=== PATIENT | male | born 1965 | race Caucasian/White ===

== ENCOUNTER 2017-08-11 15:20 | Emergency (ER) | payer OTHER ==
[~2017-08-11] VITALS: Ht 182.9 cm; Wt 74.8 kg
[~2017-08-11 15:20] MED LIST: MOBIC15 MG PO; NORCO 5-325 TA1 EACH PO
[2017-08-11 15:22] VITALS: BP 143/95
[2017-08-11] MEDS ORDERED: MIRALAX17 GM PO (15:50)
[2017-08-11 16:49] LABS: URINE BILIRUBIN NEGATIVE (Negative); URINE BLOOD 2+ (Negative); URINE COLOR YELLOW; URINE GLUCOSE-RANDOM* NEGATIVE (Negative); URINE KETONES NEGATIVE (Negative); URINE NITRITE NEGATIVE (Negative); URINE PROTEIN (DIPSTICK) NEGATIVE (Negative); URINE SPECIFIC GRAVITY >= 1.030 (1.003-1.035); URINE UROBILINOGEN 0.2 E.U./dl (0.2-1.0)
[2017-08-11 17:04] LABS: SQUAMOUS None Seen /LPF (0-3); URINE WBC None Seen /HPF (0-5)
[2017-08-11 17:05] LABS: BACTERIA 1-9 Few /HPF (None Seen); CASTS None Seen /LPF (None Seen); CRYSTALS None Seen /LPF (None Seen); URINE RBC 0-2 Rare /HPF (0-2)
== END 2017-08-11 16:00 | disposition home or self-care (01) ==
LOC: ER 15:20
PROVIDERS: Nurse Practitioner Family
DX: K59.00 Constipation, unspecified (principal)